=== PATIENT | male | born 1975 | race Caucasian/White ===

== ENCOUNTER 2020-07-06 09:22 | Emergency (ER) | payer OTHER ==
[~2020-07-06] VITALS: Ht 182.9 cm; Wt 106.8 kg
--- NOTE | 2020-07-06 09:37 | PHYS DOC ---
General Adult EDM: Chief Complaint: ABDOMINAL PAIN HPI: HPI: 44-year-old male past medical history of otosclerosis with right stapedectomy and chronic vasectomy pain on Ultram, presents the ED brought in by EMS with complaints of nausea and periumbilical abdominal pain pain just above the bellybutton that started around 2 AM. Patient is incarcerated and as seen at the clinic and diagnosed with norovirus, treated with Zofran, Pepto and IV fluids. Patient's pain continued to worsen and migrated to the right lower quadrant, now with nausea, nonbloody nonbilious vomiting. Patient tachycardic on arrival and was given fentanyl IV 50 mcg. Denies any history of kidney stones or abdominal surgeries. Has been NPO > 12 hours. Denies any medication overdose/foreign body ingestion. Review of Systems: Review of Systems: Constitutional: Denies fever or chills Eyes: Denies change in visual acuity HENT: Denies nasal congestion or sore throat Respiratory: Denies cough or shortness of breath Cardiovascular: Denies chest pain or edema GI: Denies abdominal pain, nausea, vomiting, bloody stools or diarrhea : Denies dysuria Musculoskeletal: Denies back pain or joint pain Integument: Denies rash Neurologic: Denies headache, focal weakness or sensory changes Endocrine: Denies polyuria or polydipsia Lymphatic: Denies swollen glands Psychiatric: Denies depression or anxiety Physical Exam: PE: Constitutional: Very uncomfortable and in obvious distress, febrile HENT: Normocephalic, atraumatic, Eyes: EOMI, conjunctiva normal, no discharge. Neck: Normal range of motion, supple, no nuchal rigidity Cardiovascular: S1/2 present, tachycardic Lungs & Thorax: Speaking in full sentences, bilateral equal chest rise, no tachypnea or increased work of breathing Abdomen: soft, rigid with guarding, McBurney's point tenderness, positive Rovsing sign, no Reynaga sign, Skin: Warm-slightly tachycardic, dry, Back: No midline tenderness, no CVA tenderness. [] Extremities: No tenderness, no cyanosis, no lower extremity edema Neurologic: Alert and oriented X 3, normal motor function, normal sensory function, no focal deficits noted. [] Psychologic: Affect normal, judgement normal, mood normal. [] : Circumcised, no rash, no penile testicular tenderness EKG: EKG: Sinus tachycardia 104 bpm, no axis deviation, normal intervals, T wave inversion lead III, Q waves in 3 and aVF, no ST elevations or ST depressions Radiology/Procedures: Radiology/Procedures: IMAGING REPORT Signed PATIENT: NALLELY JOHNSONCOUNT: [id number] : 1975 LOCATION: ER AGE: 44 SEX: M EXAM STATUS: REG ER ORD. PHYSICIAN: ESTEPHANIA GABRIEL DO REASON: SHORTNESS OF BREATH, ABD PAIN PROCEDURE: PORTABLE CHEST 1V Exam Date: 07/06/2020 9:38 AM XR CHEST 1V Indication: Reason: SHORTNESS OF BREATH, ABD PAIN / Spl. Instructions: / History: FINDINGS/ IMPRESSION: The cardiac silhouette and pulmonary vasculature are within normal limits. There is no focal consolidation, pleural effusion or pneumothorax. The visualized osseous structures are intact. Electronically signed by: June Zuleta MD (07/06/2020 10:05 AM) [id number] DICTATED AND SIGNED BY: JUNE ZULETA MD DATE: 07/06/20 1005 CC: SHUN ALBERTO RESIN SHAVER; ESTEPHANIA GABRIEL DO ~MTH0 0 IMAGING REPORT Signed PATIENT: NALLELY JOHNSONCOUNT: [id number] : 1975 LOCATION: ER AGE: 44 SEX: M EXAM STATUS: REG ER ORD. PHYSICIAN: ESTEPHANIA GABRIEL DO REASON: abd pian PROCEDURE: CT ABD PELV W/ IV CONTRST ONLY Exam Date: 07/06/2020 9:[address] ABDOMEN+PELVIS W Indication: Reason: abd pian / Spl. Instructions: / History: TECHNIQUE: CT examination of the abdomen and pelvis was performed following the administration of oral and nonionic intravenous contrast. One or more of the following dose reduction techniques were utilized: *Automated exposure control (AEC) *Adjustment of mA and/or kV according to patient size *Use of iterative reconstruction technique *CT scan done according to ALARA, or ALARA/IMAGE GENTLY FINDINGS: The visualized lung bases are clear. There is a small hiatal hernia. The liver, gallbladder, spleen, pancreas, adrenal glands and kidneys are normal. Urinary bladder is normal in appearance. The appendix is distended up to 11 mm and partially fluid-filled with prominent periappendiceal fat stranding and small free fluid. Findings are consistent with acute appendicitis. There is question of a few small extraluminal foci of air in the right lower quadrant raising the possibility of appendiceal rupture. No loculated or organized collection seen at this time. There is no bowel obstruction. Mild atherosclerotic calcifications are seen. No lymphadenopathy or ascites is seen. Degenerative changes are seen in the spine. IMPRESSION: Acute appendicitis. Question of a few small extraluminal foci of air in the righ t lower quadrant raise the possibility of appendiceal rupture. No organized or loculated collection is seen at this time. Findings discussed with Estephania Gabriel at 07/06/2020 11:18 AM. FOR INTERNAL CODING PURPOSES Critical result: RESULT CODE: (C) Electronically signed by: June Zuleta MD (07/06/2020 11:20 AM) [id number] DICTATED AND SIGNED BY: JUNE ZULETA MD DATE: 07/06/20 1110 CC: SHUN ALBERTOP; ESTEPHANIA GABRIEL DO ~MTH0 0 Heart Score: C/O Chest Pain: No Risk Factors: Risk Factors: DM, Current or recent (<one month) smoker, HTN, HLP, family history of CAD, obesity. Risk Scores: Score 0 - 3: 2.5% MACE over next 6 weeks - Discharge Home Score 4 - 6: 20.3% MACE over next 6 weeks - Admit for Clinical Observation Score 7 - 10: 72.7% MACE over next 6 weeks - Early Invasive Strategies Course & Med Decision Making: Course & Med Decision Making Pertinent Labs and Imaging studies reviewed. (See chart for details) Concern for sepsis secondary to appendicitis with questionable free air, ruptured/perforated appendix (which I highly suspect given abdominal exam and level of discomfort). Started on Flagyl and cefoxitin. NPO. IVFs, LA 2.7. No hypotension. D/w Dr. Pantoja who requested pt be in ICU. Rapid covid negative. Accepted by Dr. Ballesteros. Pt stable at time of transfer and agrees with this plan. I have spoken with the patient and/or caregivers. I have explained the patient's condition, diagnosis and treatment plan based on the information available to me at this time. I have answered the patient's and/or caregivers questions and answered any concerns. The patient and/or caregivers have as good an understanding of the patient's diagnosis, condition and treatment plan as can be expected at this point. The patient has been stabilized within the capability of the emergency department. The patient will be transported for further care and management or will be moved to an observation or inpatient service. I have communicated with the staff or medical practitioner taking over this patient's care. Critical Care: Authorized and Performed by: Estephania Gabriel DO Total critical care time: approximately 120 minutes Due to a high probability of clinically significant, life threatening deterioration, the patient required my highest level of preparedness to intervene emergently and I personally spent this critical care time directly and personally managing the patient. This critical care time included obtaining a history; examining the patient; pulse oximetry; ventilator management if ne cessary; ordering and review of studies; arranging urgent treatment with development of a management plan; evaluation of patient's response to treatment; frequent reassessment; discussion with patient/family; and, discussions with other providers. This critical care time was performed to assess and manage the high probability of imminent, life-threatening deterioration that could result in multi-organ failure. It was exclusive of separately billable procedures and treating other patients and teaching time. Please see MDM section and the rest of the note for further information on patient assessment and treatment. Dragon Disclaimer: Zohreh Disclaimer: This electronic medical record was generated, in whole or in part, using a voice recognition dictation system. Departure Departure: Impression: Primary Impression: Acute appendicitis Additional Impression: Sepsis Disposition: 05 DC/TRF OTHER TYPE INSTITUTI ([facility], Dr. Ballesteros) Condition: CRITICAL Referrals: SHUN ALBERTO RESIN SHAVER (PCP) ESTEPHANIA GABRIEL DO Jul 06, 2020 09:37
[2020-07-06] MEDS ORDERED: IV NORMAL SALINE 1,000ML 1,000 ML IV ONE ×2 (09:45→12:45)
[2020-07-06] MEDS ORDERED: HYDROmorphone PF 1 MG/ML DISP.SYRIN IVP ONE ×2 (09:45→17:15)
[2020-07-06] MEDS ORDERED: IV NORMAL SALINE 1,000ML 1,000 ML IV SCH (09:45)
[2020-07-06] MEDS ORDERED: METOCLOPRAMIDE HCL 10 MG/2 ML VIAL. IVP ONE (09:45)
[2020-07-06] MEDS ORDERED: IOHEXOL 300 MG/ML 75 ML VIAL. IV ONE (10:00)
[2020-07-06] MEDS ORDERED: CONTRAST GIVEN. MC PRN (10:00)
[2020-07-06 10:01] LABS: BASO # 0.1 x10^3/uL (0.0-0.2); BASO % 0 % (0-3); EOS # 0.1 x10^3/uL (0.0-0.7); EOS % 1 % (0-3); HEMOGLOBIN 15.2 g/dL (13.0-17.5); LYMPH # 1.7 x10^3/uL (1.0-4.8); LYMPH % 11 % (24-48); MEAN CORPUSCULAR HEMOGLOBIN 29 pg (25-35); MEAN CORPUSCULAR HGB CONC 33 g/dL (31-37); MEAN CORPUSCULAR VOLUME 87 fL (79-100); MONO # 1.3 x10^3/uL (0.0-1.1); MONO % 9 % (0-9); NEUT % 79 % (31-73); PLATELET COUNT 123 x10^3/uL (140-400); RED BLOOD COUNT 5.28 x10^6/uL (4.30-5.70); RED CELL DISTRIBUTION WIDTH 13.4 % (11.5-14.5); WHITE BLOOD COUNT 15.1 x10^3/uL (4.0-11.0)
--- NOTE | 2020-07-06 10:07 | RAD ---
Exam Date: 07/06/2020 9:38 AM XR CHEST 1V Indication: Reason: SHORTNESS OF BREATH, ABD PAIN / Spl. Instructions: / History: FINDINGS/ IMPRESSION: The cardiac silhouette and pulmonary vasculature are within normal limits. There is no focal consolidation, pleural effusion or pneumothorax. The visualized osseous structures are intact. Electronically signed by: Leobardo Zuleta MD (07/06/2020 10:05 AM) [id number]
[2020-07-06 10:12] LABS: CALCIUM 9.1 mg/dL (8.5-10.1); CREATININE 1.2 mg/dL (0.7-1.3); GFR 66.4
[2020-07-06 10:19] LABS: C REACTIVE PROTEIN 122.4 mg/L (0-3.3); DIRECT BILIRUBIN 0.1 mg/dL (0.0-0.2); TOTAL BILIRUBIN 0.7 mg/dL (0.2-1.0)
[2020-07-06] MEDS ORDERED: ACETAMINOPHEN 325 MG TABLET PO ONE ×3 (10:45)
[2020-07-06] MEDS ORDERED: IV NORMAL SALINE 1,000ML 2,340 ML IV SCH ×2 (10:45)
[2020-07-06] MEDS ORDERED: NORMAL SALINE IV SCH (10:45)
[2020-07-06 11:08] VITALS: BP 142/70
[2020-07-06] MEDS ORDERED: HYDROmorphone PF 2 MG/ML VIAL ONE (11:08)
[2020-07-06] MEDS ORDERED: HYDROmorphone PF 2 MG/ML VIAL IVP ONE (11:15)
--- NOTE | 2020-07-06 11:23 | RAD ---
Exam Date: 07/06/2020 9:[address] ABDOMEN+PELVIS W Indication: Reason: abd pian / Spl. Instructions: / History: TECHNIQUE: CT examination of the abdomen and pelvis was performed following the administration of or al and nonionic intravenous contrast. One or more of the following dose reduction techniques were ut ilized: *Automated exposure control (AEC) *Adjustment of mA and/or kV according to patient size *Use of iterative reconstruction technique *CT scan done according to ALARA, or ALARA/IMAGE GENTLY FINDINGS: The visualized lung bases are clear. There is a small hiatal hernia. The liver, gallbladder, spleen, pancreas, adrenal glands and kidneys are normal. Urinary bladder is normal in appearance. The appendix is distended up to 11 mm and partially fluid-filled with prominent periappendiceal fat s tranding and small free fluid. Findings are consistent with acute appendicitis. There is question of a few small extraluminal foci of air in the right lower quadrant raising the possibility of appendice al rupture. No loculated or organized collection seen at this time. There is no bowel obstruction. Mild atherosclerotic calcifications are seen. No lymphadenopathy or ascites is seen. Degenerative changes are seen in the spine. IMPRESSION: Acute appendicitis. Question of a few small extraluminal foci of air in the right lower quadrant rais e the possibility of appendiceal rupture. No organized or loculated collection is seen at this time. Findings discussed with Estephania Delvalle at 07/06/2020 11:18 AM. FOR INTERNAL CODING PURPOSES Critical result: RESULT CODE: (C) Electronically signed by: Leobardo Zuleta MD (07/06/2020 11:20 AM) [id number]
[2020-07-06] MEDS ORDERED: IV NORMAL SALINE 50ML 50 ML ONE ×2 (11:30→11:32)
[2020-07-06 13:03] LABS: % ATYL 3 % (0-0); % BANDS 3 % (0-9); % LYMPHS 12 % (24-48); % MONOS 5 % (0-10); % SEGS 77 % (35-66); PLT ESTIMATE DECREASED (ADEQUATE); TOXIC GRANULATION SLIGHT
[2020-07-06] MEDS ORDERED: HYDROmorphone PF 1 MG/ML DISP.SYRIN ONE (13:55)
--- NOTE | 2020-07-06 16:47 | EKG ---
[facility] ED [facility] [place] [id number] Test Date: 2020-07-06 Test Time: 10:07:25 Pat Name: NALLELY JOHNSON Department: Room: Gender: M Piccoloist: : 1975 Requested By: DEMARCUS GABRIEL Order Number: [id number] Reading MD: Measurements Intervals [place] Rate: 104 P: 2 DC: 116 QRS: 24 QRSD: 92 T: 11 QT: 306 QTc: 408 Interpretive Statements SINUS TACHYCARDIA NO SPECIFIC ECG ABNORMALITIES RI6.02 No previous ECG available for comparison
== END 2020-07-06 13:58 | disposition short-term general hospital (02) ==
LOC: ER 09:22
DX: A41.9 Sepsis, unspecified organism (principal); K35.80 Unspecified acute appendicitis; Z20.822 Contact with and (suspected) exposure to COVID-19
CPT/HCPCS: 36415; 71045; 74177; 80048; 80076; 82550; 83605; 83690; 84484; 85007; 85025; 85610; 85730; 86140; 87040; 87426; 93005; 96361; 96365; 96374; 96375; 96376; 99291; 99292; C9803; J0694; J1170; J2765; J3010; J7030; Q9967; U0003; U0005